=== PATIENT | female | born 1995 | race Caucasian/White ===

== ENCOUNTER → 2016-11-26 | Outpatient (CLI) | payer BC ==
[~2016-11-26] MED LIST: ACET-1256 PO; LEVOIUD
[2016-11-26 12:57] LABS: BASO % 0.5 %; EOS % 0.5 %; HEMATOCRIT 40.2 % (37-47); IG% 0.3 %; LYMPH % 26.3 %; MEAN CELL VOLUME 86.6 fL (80-100); MEAN CORPUSCULAR HEMOGLOBIN 28.9 pg (25-34); MEAN CORPUSCULAR HGB CONC 33.3 g/dl (32-36); MEAN PLATELET VOLUME 11.2 fL (7.4-10.4); MONO % 5.5 %; NEUT % 66.9 %; PLATELET COUNT 229 K/uL (130-400); RED BLOOD COUNT 4.64 M/uL (4.2-5.4)
[2016-11-26 12:58] LABS: BASO ABS # 0.04 K/uL (0-0.2); COMPLETE YES; LYMPH ABS # 1.92 K/uL (1.2-3.4)
[2016-11-26 13:10] LABS: ALB/GLOB RATIO 1.8 (0.9-2); ALT/SGPT 16 U/L (12-78); AST/SGOT 9 U/L (15-37); BLOOD UREA NITROGEN 9 mg/dl (7-18); BUN/CREATININE RATIO 14.1 (10-20); CALCIUM 9.2 mg/dl (8.5-10.1); CARBON DIOXIDE 28 mmol/L (21-32); CHLORIDE 108 mmol/L (98-107); CREATININE 0.66 mg/dl (0.60-1.20); GLUCOSE 90 mg/dl (70-99); SODIUM 142 mmol/L (136-145)
[2016-11-26 13:18] LABS: ALKALINE PHOSPHATASE 73 U/L (45-117); TOTAL IRON BINDING CAPACITY 267 mcg/dl (250-450)
[2016-11-26 14:45] LABS: URINE APPEARANCE CLEAR (CLEAR); URINE BILIRUBIN NEG (NEG); URINE COLOR YELLOW; URINE EPITHELIAL CELL AUTO >30 /lpf (0-5); URINE NITRITE NEG (NEG); URINE PH 6.5 (4.5-7.5); URINE SPECIFIC GRAVITY 1.018 (1.000-1.030); UROBILINOGEN NEG (NEG); ZZUR CULT IF INDIC CLEAN CATCH NO
[2016-11-26 14:50] LABS: MANUAL MICROSCOPIC REQUIRED? NO; REVIEW REQ? NO
== END | disposition home or self-care (01) ==
LOC: C.LAB 11:31
PROVIDERS: ATTEND Pediatrics
DX: D64.9 Anemia, unspecified (principal)